=== PATIENT | female | born 1985 | race Hispanic/Latino ===

== ENCOUNTER 2018-03-14 21:22 | Emergency (ER) | payer OTHER | END 2018-03-14 23:03 | disposition home or self-care (01) | LOC: EDH 21:22 | DX: J06.9 Acute upper respiratory infection, unspecified (principal); M54.2 Cervicalgia; M54.9 Dorsalgia, unspecified; Z98.890 Other specified postprocedural states ==

== ENCOUNTER 2018-04-27 15:07 | Emergency (ER) | payer SELFPAY ==
[2018-04-27 16:32] LABS: BASOPHILS % (AUTO) 1.1 % (0.0-5.0); EOSINOPHILS % (AUTO) 0.7 % (0.0-8.0); HEMATOCRIT 28.8 % (36-48); LYMPHOCYTES % (AUTO) 20.4 % (21.0-51.0); MEAN CORPUSCULAR HGB CONC 31.1 g/dL (32.0-36.0); MEAN CORPUSCULAR VOLUME 61.1 fL (79-99); MONOCYTES % (AUTO) 3.8 % (3.0-13.0); NUCLEATED RED BLOOD CELLS 0.2 % (0.0-0.19); PLATELET COUNT (AUTO) 377 K/uL (130-400); RED BLOOD CELL COUNT(AUTO) 4.71 MIL/uL (4.00-5.50); WHITE BLOOD COUNT (AUTO) 8.2 K/uL (4.8-10.8)
[2018-04-27 16:44] LABS: CREATININE 0.7 mg/dL (0.5-1.5); POTASSIUM 4.1 mmol/L (3.5-5.1)
[2018-04-27 16:53] LABS: ALBUMIN 3.6 g/dL (3.5-5.0); BILIRUBIN,TOTAL 0.4 mg/dL (0.2-1.0)
== END 2018-04-27 17:37 | disposition home or self-care (01) ==
LOC: EDH 15:07
DX: N92.1 Excessive and frequent menstruation with irregular cycle (principal); Z98.51 Tubal ligation status
CPT/HCPCS: 36415; 80053; 84702; 85025; 86850; 86900; 86901

== ENCOUNTER 2018-06-25 20:05 | Emergency (ER) | payer SELFPAY ==
[2018-06-25] MEDS ORDERED: METOCLOPRAMIDE 10 MG/2 ML VIAL ONE (20:43)
[2018-06-25] MEDS ORDERED: ONDANSETRON HCL 4 MG/2 ML VIAL ONE (20:44)
[2018-06-25] MEDS ORDERED: FAMOTIDINE/PF 20 MG/2 ML VIAL IV ONE (20:44)
[2018-06-25] MEDS ORDERED: KETOROLAC TROMETHAMINE 30MG/ML ONE (20:44)
[2018-06-25 20:47] LABS: BASOPHILS % (AUTO) 0.9 % (0.0-5.0); EOSINOPHILS % (AUTO) 0.9 % (0.0-8.0); HEMATOCRIT 23.9 % (36-48); LYMPHOCYTES % (AUTO) 18.9 % (21.0-51.0); MEAN CORPUSCULAR HEMOGLOBIN 18.7 pg (27.0-33.0); MEAN CORPUSCULAR HGB CONC 30.5 g/dL (32.0-36.0); MEAN CORPUSCULAR VOLUME 61.4 fL (79-99); MONOCYTES % (AUTO) 4.3 % (3.0-13.0); PLATELET COUNT (AUTO) 310 K/uL (130-400); RED BLOOD CELL COUNT(AUTO) 3.89 MIL/uL (4.00-5.50); RED CELL DISTRIBUTION WIDTH 19.3 % (11.0-15.5); WHITE BLOOD COUNT (AUTO) 7.5 K/uL (4.8-10.8)
[2018-06-25 20:49] LABS: CREATININE 0.7 mg/dL (0.5-1.5); POTASSIUM 4.1 mmol/L (3.5-5.1)
[2018-06-25 20:54] LABS: ALBUMIN 3.1 g/dL (3.5-5.0); BILIRUBIN,TOTAL 0.3 mg/dL (0.2-1.0); TOTAL PROTEIN, SERUM 6.7 g/dL (6.0-8.3)
== END 2018-06-25 21:41 | disposition home or self-care (01) ==
LOC: EDH 20:05
DX: E86.9 Volume depletion, unspecified (principal); R55 Syncope and collapse; D53.9 Nutritional anemia, unspecified; I10 Essential (primary) hypertension; F41.9 Anxiety disorder, unspecified; F32.9 Major depressive disorder, single episode, unspecified; Z98.51 Tubal ligation status
CPT/HCPCS: 36415; 80053; 83690; 85025; 96361; 96374; 96375; 99284; J1885; J2405; J2765; J3490

== ENCOUNTER 2019-01-05 09:50 | Emergency (ER) | payer SELFPAY ==
[2019-01-05] MEDS ORDERED: FLUORESCEIN SODIUM 1 STRIP STRIP ONE (10:05)
[2019-01-05] MEDS ORDERED: GENTAMICIN SULFATE 0.3% 5ML DROPS ONE (10:13)
== END 2019-01-05 11:06 | disposition home or self-care (01) ==
LOC: EDH 09:50
DX: S05.01XA Injury of conjunctiva and corneal abrasion without foreign body, right eye, initial encounter (principal); F41.9 Anxiety disorder, unspecified; F32.9 Major depressive disorder, single episode, unspecified; I10 Essential (primary) hypertension; X58.XXXA Exposure to other specified factors, initial encounter; Y93.89 Activity, other specified; Y92.89 Other specified places as the place of occurrence of the external cause; Y99.8 Other external cause status

== ENCOUNTER 2019-08-13 14:05 | Emergency (ER) | payer SELFPAY ==
[2019-08-13] MEDS ORDERED: KETOROLAC TROMETHAMINE 60 MG/2 ML VIAL ONE (17:39)
[2019-08-13] MEDS ORDERED: CYCLOBENZAPRINE HCL 10 MG TABLET ONE (17:39)
[2019-08-13] MEDS ORDERED: TRAMADOL HCL 50 MG TABLET ONE (17:39)
== END 2019-08-13 18:10 | disposition home or self-care (01) ==
LOC: EDH 14:05
DX: M24.212 Disorder of ligament, left shoulder (principal); I10 Essential (primary) hypertension; F41.9 Anxiety disorder, unspecified; F32.9 Major depressive disorder, single episode, unspecified; Z98.890 Other specified postprocedural states
CPT/HCPCS: 73030; 81025; 96372; 99284; J1885

== ENCOUNTER 2023-02-18 08:23 | Emergency (ER) | payer OTHER ==
[~2023-02-18] VITALS: Ht 154.9 cm; Wt 111.1 kg
[2023-02-18 08:27] VITALS: BP 147/93; PULSE 76; RESP 16; O2SAT 100
[2023-02-18 08:53] LABS: HEMATOCRIT 29.6 % (36-48); MEAN CORPUSCULAR HEMOGLOBIN 21.9 pg (27.0-33.0); MEAN CORPUSCULAR HGB CONC 30.7 g/dL (32.0-36.0); MEAN CORPUSCULAR VOLUME 71.2 fL (79-99); PLATELET COUNT (AUTO) 308 K/uL (130-400); RED BLOOD CELL COUNT(AUTO) 4.16 MIL/uL (4.00-5.50); RED CELL DISTRIBUTION WIDTH 15.3 % (11.0-15.5); WHITE BLOOD COUNT (AUTO) 6.7 K/uL (4.8-10.8)
[2023-02-18 08:57] LABS: APPEARANCE,URINE CLEAR (CLEAR); BILIRUBIN,URINE NEGATIVE (NEGATIVE); COLOR,URINE YELLOW (YELLOW); GLUCOSE, URINE (UA) NEGATIVE (NEGATIVE); KETONES,URINE NEGATIVE (NEGATIVE); LEUKOCYTE ESTERASE ,URINE NEGATIVE Leu/uL (NEGATIVE); NITRATE,URINE NEGATIVE (NEGATIVE); OCCULT BLOOD,URINE LARGE (NEGATIVE); PH,URINE 5.5 (5.0-8.0); PROTEIN,URINE NEGATIVE (NEGATIVE); UROBILINOGEN,URINE 0.2 mg/dL (0.2-1.0)
[2023-02-18 09:09] LABS: ADD UA MICROSCOPIC YES; HCG,QUALITATIVE URINE NEGATIVE (NEGATIVE)
[2023-02-18 09:11] LABS: MUCUS,URINE RARE LPF (None Seen); RBC,URINE TNTC /HPF (0-1); SQUAMOUS EPITHELIAL CELL,UR FEW /HPF (0-2)
[2023-02-18 09:15] LABS: CREATININE 0.6 mg/dL (0.5-1.5); POTASSIUM 3.8 mmol/L (3.5-5.1)
[2023-02-18 09:19] LABS: ALBUMIN 3.3 g/dL (3.5-5.0); BILIRUBIN,TOTAL 0.2 mg/dL (0.2-1.0); TOTAL PROTEIN, SERUM 7.1 g/dL (6.0-8.3)
[2023-02-18 10:37] LABS: MAN.DIFF COMMENT-IMPRESSION MANUAL DIFFERENTIAL; PLATELET MORPHOLOGY COMMENT ADEQUATE; TOTAL CELLS COUNTED 100; WBC MORPHOLOGY NORMAL
[2023-02-18 10:38] LABS: BASOPHILS % (MANUAL) 3 % (0-2); LYMPHOCYTES % (MANUAL) 31 % (22-44); MONOCYTES % (MANUAL) 3 % (2-9); REACTIVE LYMPHOCYTES 2 % (0-0)
[2023-02-18 10:39] LABS: SEGMENTED NEUTROPHILS % 61 % (40-70)
[2023-02-18] MEDS ORDERED: IBUP-2077 PO (11:21)
[2023-02-19] MEDS ORDERED: CEFD300C3 PO (20:55)
[2023-02-19] MEDS ORDERED: PHEN-847 PO (20:55)
== END 2023-02-18 11:35 | disposition home or self-care (01) ==
LOC: EDH 08:23
DX: N83.202 Unspecified ovarian cyst, left side (principal); Z98.890 Other specified postprocedural states
CPT/HCPCS: 36415; 74176; 80053; 81001; 81025; 83690; 85025

== ENCOUNTER 2023-02-19 17:54 | Emergency (ER) | payer OTHER ==
[~2023-02-19] VITALS: Ht 154.9 cm; Wt 108.9 kg
[~2023-02-19 17:54] MED LIST: IBUP-2077 PO
[2023-02-19 19:08] LABS: APPEARANCE,URINE CLEAR (CLEAR); BILIRUBIN,URINE NEGATIVE (NEGATIVE); COLOR,URINE YELLOW (YELLOW); GLUCOSE, URINE (UA) NEGATIVE (NEGATIVE); KETONES,URINE 5 mg/dL (NEGATIVE); LEUKOCYTE ESTERASE ,URINE 25 Leu/uL (NEGATIVE); NITRATE,URINE NEGATIVE (NEGATIVE); OCCULT BLOOD,URINE SMALL (NEGATIVE); PROTEIN,URINE 20 mg/dL (NEGATIVE); UROBILINOGEN,URINE 0.2 mg/dL (0.2-1.0)
[2023-02-19 19:10] LABS: ADD UA MICROSCOPIC YES
[2023-02-19 19:11] LABS: HCG,QUALITATIVE URINE NEGATIVE (NEGATIVE)
[2023-02-19 19:13] LABS: BACTERIA,URINE RARE /HPF (None Seen); CALCIUM OXALATE CRYSTALS,UR RARE /LPF (None Seen); MUCUS,URINE RARE LPF (None Seen); RBC,URINE 51-100 /HPF (0-1); SQUAMOUS EPITHELIAL CELL,UR RARE /HPF (0-2); UNCLASSIFIED CRYSTAL 25 /HPF (None Seen)
[2023-02-19] MEDS ORDERED: KETOROLAC 60 MG VIAL (30MG/ML) IM ONE (19:30)
[2023-02-19] MEDS ORDERED: CEFTRIAXONE 1G VIAL IM ONE (19:30)
[2023-02-19] MEDS ORDERED: PHENAZOPYRIDINE HCL 200 MG TABLET PO ONE (19:30)
[2023-02-19] MEDS ORDERED: PHEN-847 PO (20:55)
[2023-02-19] MEDS ORDERED: CEFD300C3 PO (20:55)
[2023-02-19 21:20] VITALS: BP 138/84; PULSE 88; RESP 18; O2SAT 98
== END 2023-02-19 21:24 | disposition home or self-care (01) ==
LOC: EDH 17:54
DX: N39.0 Urinary tract infection, site not specified (principal); F41.9 Anxiety disorder, unspecified; Z98.890 Other specified postprocedural states
CPT/HCPCS: 99284; 81001; 81025; 96372 ×2; J0696; J1885

== ENCOUNTER 2023-07-14 13:43 | Emergency (ER) | payer OTHER ==
[~2023-07-14] VITALS: Ht 157.5 cm; Wt 99.8 kg
[~2023-07-14 13:43] MED LIST changes: +CEFD300C3 PO; +PHEN-847 PO
[2023-07-14 13:54] VITALS: BP 149/86; PULSE 80; RESP 16
[2023-07-14 14:12] LABS: HEMATOCRIT 31.1 % (36-48); MEAN CORPUSCULAR HEMOGLOBIN 23.6 pg (27.0-33.0); MEAN CORPUSCULAR HGB CONC 31.8 g/dL (32.0-36.0); MEAN CORPUSCULAR VOLUME 74.2 fL (79-99); PLATELET COUNT (AUTO) 266 K/uL (130-400); RED BLOOD CELL COUNT(AUTO) 4.19 MIL/uL (4.00-5.50); RED CELL DISTRIBUTION WIDTH 14.6 % (11.0-15.5); WHITE BLOOD COUNT (AUTO) 6.2 K/uL (4.8-10.8)
[2023-07-14 14:21] LABS: CREATININE 0.6 mg/dL (0.5-1.0); POTASSIUM 3.8 mmol/L (3.5-5.1)
[2023-07-14 15:01] LABS: ADD UA MICROSCOPIC YES; APPEARANCE,URINE CLEAR (CLEAR); BILIRUBIN,URINE NEGATIVE (NEGATIVE); COLOR,URINE YELLOW (YELLOW); GLUCOSE, URINE (UA) NEGATIVE (NEGATIVE); KETONES,URINE NEGATIVE (NEGATIVE); LEUKOCYTE ESTERASE ,URINE NEGATIVE Leu/uL (NEGATIVE); NITRATE,URINE NEGATIVE (NEGATIVE); OCCULT BLOOD,URINE NEGATIVE (NEGATIVE); PH,URINE 5.5 (5.0-8.0); PROTEIN,URINE 10 mg/dL (NEGATIVE); UROBILINOGEN,URINE 0.2 mg/dL (0.2-1.0)
[2023-07-14 15:05] LABS: BACTERIA,URINE RARE /HPF (None Seen); MUCUS,URINE FEW LPF (None Seen); SQUAMOUS EPITHELIAL CELL,UR FEW /HPF (0-2)
[2023-07-14] MEDS: KETOROLAC 60 MG VIAL (30MG/ML) IM ONE (15:38)
== END 2023-07-14 16:37 | disposition home or self-care (01) ==
LOC: EDH 13:43
DX: N83.202 Unspecified ovarian cyst, left side (principal); F41.9 Anxiety disorder, unspecified; Z79.899 Other long term (current) drug therapy; Z98.890 Other specified postprocedural states
CPT/HCPCS: 99285; 74176; 80048; 85027; 81001; 36415; 96372; J1885

== ENCOUNTER 2023-12-10 10:23 | Emergency (ER) | payer SELFPAY ==
[~2023-12-10] VITALS: Ht 154.9 cm; Wt 102.1 kg
[2023-12-10 11:42] LABS: RAPID GROUP A STREP negative (NEGATIVE)
[2023-12-10 11:47] LABS: SARS-CoV-2, RNA, NAAT NEGATIVE SARS CoV-2 (NEGATIVE)
[2023-12-10 11:52] LABS: INFLUENZA TYPE A Negative For Type A (NEGATIVE); INFLUENZA TYPE B Negative For Type B (NEGATIVE)
[2023-12-10] MEDS: acetaMINOPHEN 500 MG TABLET PO ONE (11:59)
[2023-12-10 12:11] VITALS: BP 137/86; PULSE 65; RESP 20; TEMP 97.5; O2SAT 99
== END 2023-12-10 12:16 | disposition home or self-care (01) ==
LOC: EDH 10:23
DX: J02.8 Acute pharyngitis due to other specified organisms (principal); Z20.822 Contact with and (suspected) exposure to COVID-19; B97.89 Other viral agents as the cause of diseases classified elsewhere; F41.9 Anxiety disorder, unspecified; Z79.899 Other long term (current) drug therapy; Z98.890 Other specified postprocedural states
CPT/HCPCS: 71045; 87635; 87804; 87880

== ENCOUNTER 2023-12-12 10:57 | Emergency (ER) | payer SELFPAY ==
[~2023-12-12] VITALS: Ht 157.5 cm; Wt 102.1 kg
[2023-12-12 11:07] VITALS: BP 137/86; PULSE 97; RESP 18; TEMP 98.7; O2SAT 99
[2023-12-12] MEDS: cefTRIAXone 1G VIAL IM ONE (11:37)
[2023-12-12] MEDS: LIDOCAINE HCL 1% 20 ML VIAL ONE (11:50)
[2023-12-12] MEDS ORDERED: AMOX1TAB16 PO (11:58)
[2023-12-13] MEDS ORDERED: ALBUHFA IH (10:04)
[2023-12-13] MEDS ORDERED: IBUP-2070 PO (10:04)
[2023-12-13] MEDS ORDERED: BENZ-39 PO (10:04)
[2023-12-13] MEDS ORDERED: AZIT250T PO (10:04)
[2023-12-13] MEDS ORDERED: FLUT16H EN (10:04)
== END 2023-12-12 12:43 | disposition home or self-care (01) ==
LOC: EDH 10:57
DX: H66.91 Otitis media, unspecified, right ear (principal); Z79.899 Other long term (current) drug therapy
CPT/HCPCS: 99283; 96372; J0696

== ENCOUNTER 2023-12-13 08:16 | Emergency (ER) | payer SELFPAY ==
[~2023-12-13] VITALS: Ht 157.5 cm; Wt 102.5 kg
[~2023-12-13 08:16] MED LIST changes: +AMOX1TAB16 PO
[2023-12-13 08:58] LABS: APPEARANCE,URINE CLEAR (CLEAR); BILIRUBIN,URINE NEGATIVE (NEGATIVE); COLOR,URINE LIGHT-YELLOW (YELLOW); GLUCOSE, URINE (UA) NEGATIVE (NEGATIVE); KETONES,URINE NEGATIVE (NEGATIVE); LEUKOCYTE ESTERASE ,URINE NEGATIVE Leu/uL (NEGATIVE); NITRATE,URINE NEGATIVE (NEGATIVE); OCCULT BLOOD,URINE NEGATIVE (NEGATIVE); PROTEIN,URINE NEGATIVE (NEGATIVE); UROBILINOGEN,URINE 0.2 mg/dL (0.2-1.0)
[2023-12-13 08:59] LABS: HCG,QUALITATIVE URINE NEGATIVE (NEGATIVE)
[2023-12-13 09:14] LABS: ADD UA MICROSCOPIC NO
[2023-12-13] MEDS ORDERED: FLUT16H EN (10:04)
[2023-12-13] MEDS ORDERED: ALBUHFA IH (10:04)
[2023-12-13] MEDS ORDERED: BENZ-39 PO (10:04)
[2023-12-13] MEDS ORDERED: AZIT250T PO (10:04)
[2023-12-13] MEDS ORDERED: IBUP-2070 PO (10:04)
[2023-12-13 10:14] VITALS: TEMP 99.9
[2023-12-13] MEDS: AZITHROMYCIN 250 MG TABLET PO SCH (10:14)
[2023-12-13] MEDS: ibuPROFEN 800 MG TAB PO SCH (10:14)
[2023-12-13] MEDS: BENZONATATE 100 MG CAPSULE PO SCH (10:14)
[2023-12-13] MEDS: IpraTROPium/alBUTERol SULFATE 3 ML SOLUTION IH SCH (10:22)
[2023-12-13 10:24] VITALS: PULSE 98; RESP 18
[2023-12-13 10:36] VITALS: BP 142/87; PULSE 90; RESP 18; TEMP 98.8; O2SAT 100
== END 2023-12-13 10:41 | disposition home or self-care (01) ==
LOC: EDH 08:16
DX: H66.91 Otitis media, unspecified, right ear (principal); J40 Bronchitis, not specified as acute or chronic; F41.9 Anxiety disorder, unspecified; Z79.899 Other long term (current) drug therapy; Z86.16 Personal history of COVID-19; Z98.890 Other specified postprocedural states
CPT/HCPCS: 81003; 81025; 94640

== ENCOUNTER 2024-02-26 04:03 | Emergency (ER) | payer SELFPAY ==
[~2024-02-26] VITALS: Ht 154.9 cm; Wt 103.9 kg
[~2024-02-26 04:03] MED LIST changes: +ALBUHFA IH; +AZIT250T PO; +BENZ-39 PO; +FLUT16H EN; +IBUP-2070 PO
[2024-02-26] MEDS: LISINOPRIL 20 MG TABLET PO ONE (04:24)
--- NOTE | 2024-02-26 04:30 | ERN ---
ED Note History of Present Illness Stated Complaint: DIZZINESS, LEFT ARM NUMBNESS, DRY MOUTH Chief Complaint: Dizzy/Light Headed Time Seen by MD: 04:14 Dictation: 38-year-old female morbid obesity who presents to the ER complaining of dizziness x2 days, associated with a left hand tingling which started today. She also reports that she feels her throat is dry. Initial evaluation [facility] 0 Vital signs was remarkable for elevated blood pressure 104/106 Otherwise patient denies headache, chest pain, fever, chills, no diarrhea. Allergies: Coded Allergies: No Known Allergies (Unverified Allergy, Unknown, 02/18/23) Home Meds Active Scripts Fluticasone Propionate (Flonase Nasal [place]) 50 Mcg/Actuation [place], 1 INH EN BID for 14 Days, #1 SPRAY 0 Refills Prov:LUIS ZHANG MD 12/13/23 Albuterol Sulfate (Ventolin Hfa/Proventil Hfa/Proair Hfa) 90 Mcg Puff, 2 INH IH QIDP PRN for WHEEZING, #1 INHALER 0 Refills Prov:LUIS ZHANG MD 12/13/23 Ibuprofen (Ibuprofen) 600 Mg Tablet, 600 MG PO Q6H PRN for PAIN, #40 TAB 0 Refills Prov:LUIS ZHANG MD 12/13/23 Benzonatate (Tessalon Perles) 100 Mg Cap, 100 MG PO TID PRN for COUGH/COLD SYMPTOMS, #30 CAP 0 Refills Prov:LUIS ZHANG MD 12/13/23 Azithromycin (Zithromax) 250 Mg Tablet, 250 MG PO DAILY, #4 TAB 0 Refills First dose tomorrow morning Prov:LUIS ZHANG MD 12/13/23 Amoxicillin/Potassium Clav (Amox Tr-K Clv 875-125 mg Tab) 875 Mg-125 Mg Tablet, 1 EACH PO BID for 10 Days, #20 TAB 0 Refills Prov:CHRISSY CARLTON [facility] 12/12/23 Phenazopyridine HCl (Pyridium) 200 Mg Tab, 200 MG PO TIDPC for 3 Days, #9 TAB TAKE WITH FOOD TO PREVENT STOMACH UPSET. Prov:MISSY MEDINA [facility] 02/19/23 Cefdinir (Cefdinir) 300 Mg Capsule, 300 MG PO BID for 10 Days, #20 CAP Prov:MISSY MEDINA [employer] 02/19/23 Ibuprofen (Ibuprofen 800 mg Tab) 800 Mg Tab, 800 MG PO Q8H PRN for PAIN for 10 Days, #30 TAB 0 Refills Prov:RADHA CONNELLY MD 02/18/23 Past Medical History Past Medical History: Pneumonia, Other Additional Past Medical Hx: COVID Surgical History: Family History: Negative Social History: Negative, Lives with family History: Not Applicable Review of System Dictation NEGATIVE EXCEPT PER HPI Constitutional: Negative for fever,chills, and weight loss Eyes: Negative for injury, pain,redness, and discharge ENT: Negative for injury,pain or swelling. Reports dry throat. Cardiovascular: denies chest pain, palpitations, and edema Respiratory: Negative for shortness of breath, cough, and wheezing, Abdomen/GI: Negative for abdominal pain, nausea, vomiting, diarrhea, and cons tipation Back: Negative for injury and pain : Negative for injury, bleeding and discharge MS/Extremity: Negative for injury and deformity Skin: Negative for rash, and discoloration Neuro: Dizziness, left hand tingling. Psych: Negative for suicide ideation, homicidal ideation, and hallucinations Initial Vital Sign VS Vital Signs Date Time Temp Pulse Resp B/P (MAP) Pulse Ox O2 Delivery O2 Flow Rate FiO2 02/26/24 04:06 98.2 64 16 194/106 99 0 02/26/24 04:29 Room Air* 21 Physical Exam Dictation General: awake, alert, NAD Head/Face: Normocephalic, atraumatic Eyes: PERRL, EOMI, vision at baseline ENT: oral cavity clear, TMs clear, no signs of infection Neck: Trachea midline, supple, no nuchal rigidity Cardiovascular: RRR, normal S1/S2, No MRGs, no JVD Respiratory: CTAB, no respiratory distress, No rales or wheezes Abdomen: Soft , no tender Skin: Warm, dry, normal turgor, no rash MS/Extremity: Pulses equal, no cyanosis, neurovascular intact, FROM Neuro: COAx4, GCS 15, strength 5/5, CN 2-12 intact, normal cerebellar exam, normal gait, Psych: Normal behavior, mood, and affect normal Results (Laboratory/Radiology) Laboratory/Radiology Laboratory Tests Test 02/26/24 04:25 White Blood Count 7.7 K/uL (4.8-10.8) Red Blood Count 4.50 MIL/uL (4.00-5.50) Hemoglobin 10.8 g/dL (12.0-16.0) L Hematocrit 34.1 % (36-48) L Mean Corpuscular Volume 75.8 fL (79-99) L Mean Corpuscular Hemoglobin 24.0 pg (27.0-33.0) L Mean Corpuscular Hemoglobin Concent 31.7 g/dL (32.0-36.0) L Red Cell Distribution Width 13.8 % (11.0-15.5) Platelet Count 296 K/uL (130-400) Mean Platelet Volume 9.8 fL (7.5-10.5) Immature Granulocyte % (Auto) 0.4 % (0-1) Neutrophils (%) (Auto) 62.3 % (40.0-77.0) Lymphocytes (%) (Auto) 31.1 % (21.0-51.0) Monocytes (%) (Auto) 4.4 % (3.0-13.0) Eosinophils (%) (Auto) 1.4 % (0.0-8.0) Basophils (%) (Auto) 0.4 % (0.0-5.0) Neutrophils # (Auto) 4.8 K/uL (1.8-7.7) Lymphocytes # (Auto) 2.4 K/uL (1.0-4.8) Monocytes # (Auto) 0.3 K/uL (0.1-1.0) Eosinophils # (Auto) 0.11 K/uL (0.00-0.70) Basophils # (Auto) 0.03 K/uL (0.00-0.20) Absolute Immature Granulocyte (auto 0.03 K/uL (0-1) Nucleated Red Blood Cells 0.0 % (0.0-0.19) Red Blood Cell Morphology See comments Sodium Level 141 mmol/L (136-145) Potassium Level 3.4 mmol/L (3.5-5.1) L Chloride Level 103 mmol/L (101-111) Carbon Dioxide Level 28 mmol/L (21-32) Blood Urea Nitrogen 12 mg/dL (7-18) Creatinine 0.6 mg/dL (0.5-1.0) Glomerular Filtration Rate Calc 117 mL/min (>90) Random Glucose 98 mg/dL (70-105) Total Calcium 8.2 mg/dL (8.5-10.1) L Serum Test, Qualitative NEGATIVE (NEGATIVE) ED Course ED Course Orders Procedure Category Date Status Time Basic Metabolic Panel LAB 02/26/24 Complete 04:15 Cbc With Differential LAB 02/26/24 Complete 04:15 Ct Head/Brain W/O CT 02/26/24 Taken Contrast 04:15 Testing, LAB 02/26/24 Complete Serum Hcg 04:18 Lisinopril 20mg PHA 02/26/24 Complete (Prinivil 20mg) 04:30 Meclizine Hcl 25 Mg PHA 02/26/24 Complete (Antivert 25 Mg) 05:00 Current Medications Medications (Trade) Dose Ordered Sig/Mickie Route PRN Reason Start Time Stop Time Status Last Admin Dose Admin Lisinopril (Prinivil 20mg) 20 mg ONCE ONCE PO 02/26/24 04:30 02/26/24 04:31 DC 02/26/24 04:24 Meclizine HCl (ANTIvert 25 mg) 25 mg ONCE ONCE PO 02/26/24 05:00 02/26/24 05:01 DC 02/26/24 04:45 Vital Signs Date Time Temp Pulse Resp B/P (MAP) Pulse Ox O2 Delivery O2 Flow Rate FiO2 02/26/24 05:38 98.2 68 18 140/74 98 Room Air* 0 02/26/24 05:04 70 18 161/83 100 Room Air* 0 02/26/24 04:29 64 18 170/93 100 Room Air* 0 02/26/24 04:06 98.2 64 16 194/106 99 0 Medical Decision Making MDM 38-year-old female morbid obesity who presented with dizziness x2 days, left hand tingling and complains of dryness of throat. Blood pressure 194/106 NIH 0 at time of my evaluation. Rationale: Urgent hypertension, stroke, CT of head ordered CBC and BMP ordered. Lisinopril [address] of head negative for acute findings The patient's blood pressure better control after given lisinopril 20 mg, patient was re-evaluate at bedside said that her symptom has gone. I explained that the patient's likely her symptoms is due to elevated BP at home. I will prescribed lisinopril and meclizine p.r.n. DX & DISP Disposition: Discharge Departure Impression: Primary Impression: Dizziness Additional Impression: Malignant hypertensive urgency Condition: Stable Scripts Meclizine HCl (Meclizine HCl) 12.5 Mg Tablet 1 TAB PO TID for dizziness for 10 Days, #30 TAB 0 Refills Prov: CARLOS URIBE MD 02/26/24 Lisinopril/Hydrochlorothiazide (Lisinopril-Hctz 20-12.5 mg Tab) 20 Mg-12.5 Mg Tablet 1 TAB PO DAILY for 30 Days, #30 TAB 0 Refills Prov: CARLOS URIBE MD 02/26/24 Additional Instructions: RETURN TO ER FOR ANY ACUTE OR WORSENING SYMPTOMS. FOLLOW-UP IN 1-2 DAYS WITH PRIMARY PROVIDER FOR RECHECK OF TODAY'S SYMPTOMS. Referrals: NONE (PCP) Time of Disposition: 05:51 CARLOS URIBE MD Feb 26, 2024 04:30
[2024-02-26] MEDS: mecliZINE HCL 25 MG TABLET PO ONE (04:45)
[2024-02-26 04:47] LABS: BASOPHILS # (AUTO) 0.03 K/uL (0.00-0.20); BASOPHILS % (AUTO) 0.4 % (0.0-5.0); EOSINOPHILS # (AUTO) 0.11 K/uL (0.00-0.70); EOSINOPHILS % (AUTO) 1.4 % (0.0-8.0); HEMATOCRIT 34.1 % (36-48); IMMATURE GRANULOCYTE ABSOLUTE 0.03 K/uL (0-1); LYMPHOCYTES # (AUTO) 2.4 K/uL (1.0-4.8); LYMPHOCYTES % (AUTO) 31.1 % (21.0-51.0); MEAN CORPUSCULAR HGB CONC 31.7 g/dL (32.0-36.0); MEAN CORPUSCULAR VOLUME 75.8 fL (79-99); MONOCYTES # (AUTO) 0.3 K/uL (0.1-1.0); MONOCYTES % (AUTO) 4.4 % (3.0-13.0); NEUTROPHILS # (AUTO) 4.8 K/uL (1.8-7.7); NEUTROPHILS % (AUTO) 62.3 % (40.0-77.0); PLATELET COUNT (AUTO) 296 K/uL (130-400); RED CELL DISTRIBUTION WIDTH 13.8 % (11.0-15.5); WHITE BLOOD COUNT (AUTO) 7.7 K/uL (4.8-10.8)
[2024-02-26 04:54] LABS: CREATININE 0.6 mg/dL (0.5-1.0); POTASSIUM 3.4 mmol/L (3.5-5.1)
[2024-02-26 05:38] VITALS: BP 140/74; PULSE 68; RESP 18; TEMP 98.3; O2SAT 98
[2024-02-26] MEDS ORDERED: MECL-226 PO (05:51)
[2024-02-26] MEDS ORDERED: LISI1TAB51 PO (05:51)
--- NOTE | 2024-02-26 09:22 | HMCIMG ---
Exam: NONCONTRAST CT BRAIN REASON: dizziness, r/o stroke. COMPARISON: 12/26/2013 TECHNIQUE: Images are obtained from vertex to the skull base. The exam was performed without IV contrast. FINDINGS: There is normal appearing brain parenchyma. There are no focal mass lesions. There is is no evidence of intracranial hemorrhage or acute stroke. Ventricles and sulci appear normal. Posterior fossa and brainstem structures are unremarkable. Paranasal sinuses and remaining extracranial soft tissues appear normal as well. IMPRESSION: 1. Normal noncontrast CT brain. CT was performed with one or more following dose reduction techniques: automated exposure control, adjustment of the mA and kv according to patient's size, or use of a iterative reconstruction technique.
== END 2024-02-26 06:02 | disposition home or self-care (01) ==
LOC: EDH 04:03
DX: R42 Dizziness and giddiness (principal); I16.0 Hypertensive urgency; Z79.899 Other long term (current) drug therapy
CPT/HCPCS: 36415; 70450; 80048; 84703; 85025; 99284

== ENCOUNTER 2025-01-09 01:34 | Emergency (ER) | payer SELFPAY ==
[~2025-01-09] VITALS: Ht 152.4 cm; Wt 108.9 kg
[~2025-01-09 01:34] MED LIST changes: +IBUP-1492 PO; -IBUP-2070 PO; +LISI1TAB51 PO; +MECL-226 PO
[2025-01-09 01:38] VITALS: BP 159/89; PULSE 117; RESP 20; TEMP 99.9
[2025-01-09 02:04] LABS: IMMATURE GRANULOCYTE ABSOLUTE 0.02 K/uL (0-1); NUCLEATED RED BLOOD CELLS 0.0 % (0.0-0.19); PLATELET COUNT (AUTO) 216 K/uL (130-400); RED BLOOD CELL COUNT(AUTO) 4.34 MIL/uL (4.00-5.50); RED CELL DISTRIBUTION WIDTH 14.9 % (11.0-15.5); WHITE BLOOD COUNT (AUTO) 5.0 K/uL (4.8-10.8)
[2025-01-09 02:12] LABS: CREATININE 0.7 mg/dL (0.5-1.0); GLOMERULAR FILTR. RATE CALC 112.0 mL/min (>90); GLUCOSE,RANDOM 139.0 mg/dL (70-105); SODIUM SERUM 141.0 mmol/L (136-145); UREA NITROGEN, BLOOD 7.0 mg/dL (7-18)
--- NOTE | 2025-01-09 02:14 | NUR ---
COVID AND FLU SWABS COLLECTED AND SENT
--- NOTE | 2025-01-09 02:22 | NUR ---
UA CUP PROVIDED
--- NOTE | 2025-01-09 02:26 | NUR ---
UA COLLECTED AND SENT
[2025-01-09 02:36] LABS: APPEARANCE,URINE CLEAR (CLEAR); GLUCOSE, URINE (UA) NEGATIVE (NEGATIVE); LEUKOCYTE ESTERASE ,URINE 75 Leu/uL (NEGATIVE); NITRATE,URINE NEGATIVE (NEGATIVE); OCCULT BLOOD,URINE NEGATIVE (NEGATIVE)
[2025-01-09 02:39] LABS: ADD UA MICROSCOPIC YES
[2025-01-09 02:40] LABS: INFLUENZA TYPE A Negative For Type A (NEGATIVE); INFLUENZA TYPE B Negative For Type B (NEGATIVE)
[2025-01-09 02:41] LABS: SQUAMOUS EPITHELIAL CELL,UR MOD /HPF (0-2)
[2025-01-09 02:46] LABS: SARS-CoV-2, RNA, NAAT POSITIVE SARS CoV-2 (NEGATIVE)
[2025-01-09 02:49] LABS: WBC MORPHOLOGY CONSISTENT W/DIFF
[2025-01-09 03:05] VITALS: TEMP 99.8
--- NOTE | 2025-01-09 03:07 | NUR ---
PT WITH RADIOLOGY AT THIS TIME
[2025-01-09] MEDS ORDERED: METH4TAB3 PO (03:19)
[2025-01-09] MEDS ORDERED: AZIT250T9 PO (03:19)
--- NOTE | 2025-01-09 03:19 | ERN ---
General Chief Complaint: Flu Symptoms Stated Complaint: COUGH CHILLS, BACK PAIN Source: patient History of Present Illness Initial Comments 39-year-old female presents to the ER with flu-like symptoms. Symptoms consist of sinus pressure, nasal congestion, fever, and chills. Allergies: Coded Allergies: No Known Allergies (Unverified Allergy, Unknown, 02/18/23) Home Meds Active Scripts Meclizine HCl (Meclizine HCl) 12.5 Mg Tablet, 1 TAB PO TID for dizziness for 10 Days, #30 TAB 0 Refills Prov:CARLOS URIBE MD 02/26/24 Lisinopril/Hydrochlorothiazide (Lisinopril-Hctz 20-12.5 mg Tab) 20 Mg-12.5 Mg Tablet, 1 TAB PO DAILY for 30 Days, #30 TAB 0 Refills Prov:CARLOS URIBE MD 02/26/24 Fluticasone Propionate (Flonase Nasal [place]) 50 Mcg/Actuation [place], 1 INH EN BID for 14 Days, #1 SPRAY 0 Refills Prov:LUIS ZHANG MD 12/13/23 Albuterol Sulfate (Ventolin Hfa/Proventil Hfa/Proair Hfa) 90 Mcg Puff, 2 INH IH QIDP PRN for WHEEZING, #1 INHALER 0 Refills Prov:LUIS ZHANG MD 12/13/23 Ibuprofen (Ibuprofen) 600 Mg Tablet, 600 MG PO Q6H PRN for PAIN, #40 TAB 0 Refills Prov:LUIS ZHANG MD 12/13/23 Benzonatate (Tessalon Perles) 100 Mg Cap, 100 MG PO TID PRN for COUGH/COLD SYMPTOMS, #30 CAP 0 Refills Prov:LUIS ZHANG MD 12/13/23 Azithromycin (Zithromax) 250 Mg Tablet, 250 MG PO DAILY, #4 TAB 0 Refills First dose tomorrow morning Prov:LUIS ZHANG MD 12/13/23 Amoxicillin/Potassium Clav (Amox Tr-K Clv 875-125 mg Tab) 875 Mg-125 Mg Tablet, 1 EACH PO BID for 10 Days, #20 TAB 0 Refills Prov:CHRISSY CARLTON 12/12/23 Phenazopyridine HCl (Pyridium) 200 Mg Tab, 200 MG PO TIDPC for 3 Days, #9 TAB TAKE WITH FOOD TO PREVENT STOMACH UPSET. Prov:MISSY MEDINA [employer] 02/19/23 Cefdinir (Cefdinir) 300 Mg Capsule, 300 MG PO BID for 10 Days, #20 CAP Prov:MISSY MEDINA [employer] 02/19/23 Ibuprofen (Ibuprofen 800 mg Tab) 800 Mg Tab, 800 MG PO Q8H PRN for PAIN for 10 Days, #30 TAB 0 Refills Prov:RADHA CONNELLY MD 02/18/23 Past Medical History Past Medical History: Pneumonia, Other Medical History Other: COVID Past Surgical History: Family History Family History: Negative Social History Social History: Negative, Lives with family Female( History) History: Not Applicable LMP: Dec 10, 2024 ROS Dictation CONSTITUTIONAL: Negative except for HPI HEAD/FACE: Negative except for HPI EENT: Negative except for HPI RESPIRATORY: Negative except for HPI GASTROINTESTINAL/ABDOMINAL: Negative except for HPI GENITOURINARY: Negative except for HPI MUSCULOSKELETAL: Negative except for HPI INTEGUMENTARY: Negative except for HPI NEUROLOGICAL/PSYCH: Negative except for HPI HEMATOLOGIC/LYMPHATIC: Negative except for HPI All Systems Negative, Except as noted above. 13 point review of systems assessed and all negative except for above. Physical Exam Physical Exam Dictation Vital Signs reviewed General Appearance: Alert, oriented x 3, no acute distress, well developed, nourished. Head and Face: non-traumatic. Eyes: PERRL, pink conjunctivas, eyelid no trauma, anterior chamber with arcus senilis. Ears: Pinnas intact and no signs of trauma or erythema ear canals clear and no discharge TM no erythema Nose: No discharge, no bleeding. Oropharynx: Mouth normal, tongue pink, pharynx clear,no erythema, tonsils no exudates, no abscesses noted, mucous membrane moist Neck: Supple, non-tender, no thyromegaly, no masses, no JVD, no bruits Breast:Deferred Chest:No tenderness, no crepitus, no paradoxical movement, no retractions Lungs:Clear, well-ventilated, symmetric, no rales, no wheezing, no rhonchi, no stridor, good breath sounds bilaterally Heart: Regular rate, regular rhythm, no murmur, no gallops Vascular: no peripheral edema, Abdomen: Soft, positive bowel sounds, nondistended, no guarding, nontender, no rebound, no masses no hepatomegaly, no splenomegaly, no Hawk's sign, no hernias. Rectal: Deferred Genital: Deferred Neurological: Normal speech, motor function intact, sensory function intact Musculoskeletal: Neck nontender, full range of motion, back nontender, full range of motion, Extremities: nontender, full range of motion Skin: Color pink, dry, no turgor, no rash, no lacerations, no abrasions, no contusions. Lymphatic: Deferred Results Laboratory and Microbiology Lab and Micro Result Laboratory Tests Test 01/09/25 01:58 01/09/25 02:14 01/09/25 02:26 White Blood Count 5.0 K/uL (4.8-10.8) Red Blood Count 4.34 MIL/uL (4.00-5.50) Hemoglobin 10.8 g/dL (12.0-16.0) L Hematocrit 32.6 % (36-48) L Mean Corpuscular Volume 75.1 fL (79-99) L Mean Corpuscular Hemoglobin 24.9 pg (27.0-33.0) L Mean Corpuscular Hemoglobin Concent 33.1 g/dL (32.0-36.0) Red Cell Distribution Width 14.9 % (11.0-15.5) Platelet Count 216 K/uL (130-400) Mean Platelet Volume 9.4 fL (7.5-10.5) Immature Granulocyte % (Auto) 0.4 % (0-1) Neutrophils (%) (Auto) 84.0 % (40.0-77.0) H Lymphocytes (%) (Auto) 9.7 % (21.0-51.0) L Monocytes (%) (Auto) 5.3 % (3.0-13.0) Eosinophils (%) (Auto) 0.4 % (0.0-8.0) Basophils (%) (Auto) 0.2 % (0.0-5.0) Neutrophils # (Auto) 4.2 K/uL (1.8-7.7) Lymphocytes # (Auto) 0.5 K/uL (1.0-4.8) L Monocytes # (Auto) 0.3 K/uL (0.1-1.0) Eosinophils # (Auto) 0.02 K/uL (0.00-0.70) Basophils # (Auto) 0.01 K/uL (0.00-0.20) Absolute Immature Granulocyte (auto 0.02 K/uL (0-1) Nucleated Red Blood Cells 0.0 % (0.0-0.19) White Cell Morphology Comment CONSISTENT W/DIFF Red Blood Cell Morphology ANISO 1+ Sodium Level 141 mmol/L (136-145) Potassium Level 4.2 mmol/L (3.5-5.1) Chloride Level 103 mmol/L (101-111) Carbon Dioxide Level 31 mmol/L (21-32) Blood Urea Nitrogen 7 mg/dL (7-18) Creatinine 0.7 mg/dL (0.5-1.0) Glomerular Filtration Rate Calc 112 mL/min (>90) Random Glucose 139 mg/dL (70-105) H Total Calcium 8.5 mg/dL (8.5-10.1) Serum Test, Qualitative NEGATIVE (NEGATIVE) Influenza Type A Antigen Negative For Type A Influenza Type B Antigen Negative For Type B SARS-CoV-2, RNA, NAAT POSITIVE SARS CoV-2 Urine Color LIGHT-YELLOW (YELLOW) Urine Appearance CLEAR (CLEAR) Urine pH 5.5 (5.0-8.0) Urine Specific [place] 1.016 (1.001-1.031) Urine Protein NEGATIVE mg/dL (NEGATIVE) Urine Glucose (UA) NEGATIVE mg/dL (NEGATIVE) Urine Ketones NEGATIVE mg/dL (NEGATIVE) Urine Occult Blood NEGATIVE (NEGATIVE) Urine Nitrate NEGATIVE (NEGATIVE) Urine Bilirubin NEGATIVE mg/dL (NEGATIVE) Urine Urobilinogen 0.2 mg/dL (0.2-1.0) Urine Leukocyte Esterase 75 [place]/uL (NEGATIVE) H Urine RBC 2-5 /HPF (0-1) H Urine WBC 2-5 /HPF (0-1) H Urine Squamous Epithelial Cells MOD /HPF (0-2) Urine Bacteria None /HPF (None Seen) Labs Reviewed?: Yes MDM MDM: Differential diagnosis: Sinusitis, upper respiratory infection, viral syndrome, dehydration There are no social concerns with this patient. Prescription drug management Prescriptions will include: Azithromycin, Medrol pack Medical management and examination interpretation discussions were had by me with other qualified healthcare professionals as indicated for the patient's care. ED Course Orders Procedure Category Date Status Time Cbc With Differential LAB 01/09/25 Complete 01:47 Basic Metabolic Panel LAB 01/09/25 Complete 01:47 Testing, LAB 01/09/25 Complete Serum Hcg 01:47 Chest 1vw RAD 01/09/25 Taken 01:47 Urinalysis Profile LAB 01/09/25 Complete 01:47 Covid Rna Naat LAB 01/09/25 Complete 01:47 Influenza Type A & B, LAB 01/09/25 Complete Rapid 01:47 Acetaminophen 325 Tab PHA 01/09/25 Complete (Tylenol 325mg Tab 02:00 Culture Urine CHAR 01/09/25 In Process 02:39 Ketorolac PHA 01/09/25 Transmitted Tromethamine 30mg/Ml 03:30 Dexamethasone 4mg/Ml PHA 01/09/25 Transmitted 1ml Vial (Dexametha 03:30 Acetaminophen 325 Tab PHA 01/09/25 Verified (Tylenol 325mg Tab 03:30 Current Medications Medications (Trade) Dose Ordered Sig/Mickie Route PRN Reason Start Time Stop Time Status Last Admin Dose Admin Acetaminophen (TYLenol 325MG TAB) 650 mg ONCE ONCE PO 01/09/25 02:00 01/09/25 02:09 DC 01/09/25 02:11 Vital Signs Date Time Temp Pulse Resp B/P (MAP) Pulse Ox O2 Delivery O2 Flow Rate FiO2 01/09/25 02:11 99.9 01/09/25 01:38 99.9 117 20 159/89 98 Room Air DX & DISP Disposition: Discharge Departure Impression: Primary Impression: COVID-19 Condition: Stable Scripts Azithromycin (Azithromycin) 250 Mg Tablet 1 TAB PO AD for 5 Days, #6 TAB 0 Refills 2 the first day followed by 1 for days 2-5 Prov: WELLINGTON HALLMAN 01/09/25 Methylprednisolone (Medrol) 4 Mg Tab.ds.pk 1 TAB PO AD for 6 Days, #21 TAB 0 Refills 6 on day 1 then reduce by one tablet daily until gone Prov: WELLINGTON HALLMAN 01/09/25 Time of Disposition: 03:18 I have reviewed the case, and I agree with, Diagnosis and Plan I performed the substantive portion of the visit. I have reviewed and personally made and approve the management plan that is documented in the note by myself or the RICK. I acknowledge for responsibility for the patient's management plan. WELLINGTON HALLMAN Jan 09, 2025 03:19
--- NOTE | 2025-01-09 03:42 | HMCIMG ---
EXAM: CR Chest, 1 view CLINICAL HISTORY: Shortness of breath. COMPARISON: None provided. FINDINGS: The lungs show no infiltrates or other acute findings. No pleural effusion or pneumothorax. The cardiomediastinal silhouette is within normal limits. No acute osseous abnormality. IMPRESSION: No acute cardiopulmonary process is evident. /[place]
== END 2025-01-09 04:01 | disposition home or self-care (01) ==
LOC: EDH 01:34
DX: U07.1 COVID-19 (principal); Z79.899 Other long term (current) drug therapy; Z86.16 Personal history of COVID-19; Z87.01 Personal history of pneumonia (recurrent); Z98.890 Other specified postprocedural states
CPT/HCPCS: 99284; 71045; 87635; 80048; 84703; 85025; 87086; 87804 ×2; 81001; 36415; 96372 ×2; J1100; J1885